=== PATIENT | male | born 1950 | race Caucasian/White ===

== ENCOUNTER 2018-05-07 07:46 | Inpatient (IN) ==
--- NOTE | 2018-04-22 11:37 | Anesthesiology Consultation ---
Date of Service April 22, 2018 Assessment & Plan (1) Encounter for pre-operative examination: Chart Review Chart Review: Acceptable Risk for Surgery and Patient seen in Pre Admission Testing Teaching & Discussion Pre-Anesthesia Teaching/Discussion Notes: Instructed NPO after midnight before surgery,except medications with 15 cc of water. Medication instructions provided according to the PAT guidelines. History Surgery Operation Date: 05/07/18 10:55 Proposed Procedures p Right Anterior Total Hip Replacement - Jin Reinoso DO Height/Weight Height: 5 ft 7 in Weight: 84.4 kg Allergies Allergy/AdvReac Type Severity Reaction Status Date / Time amoxicillin [From Augmentin] Allergy Unknown jaundice Verified 04/02/18 12:03 and elevated blood levels clavulanic acid Allergy Unknown jaundice Verified 04/02/18 12:03 [From Augmentin] and elevated blood levels simvastatin [From Zocor] AdvReac Unknown elevated Verified 04/02/18 12:02 liver enzymes Medications Home Medications Medication Instructions Recorded Confirmed Last Taken allopurinol 100 mg PO BID 04/02/18 04/02/18 Unknown atorvastatin 10 mg PO PM 04/02/18 04/02/18 Unknown cetirizine [Zyrtec] 5 mg PO QPM PRN 04/02/18 04/02/18 Unknown psyllium husk [Metamucil] 0.4 g PO QPM 04/02/18 04/02/18 Unknown tamsulosin 0.4 mg PO QPM 04/02/18 04/02/18 Unknown Past Medical History Medical History Gout High cholesterol History of kidney stones Osteoarthritis Sleep apnea NO DEVICE Past Surgical History Surgical History History of liver biopsy Hx of colonoscopy Hx of cystoscopy STONE BASKET REMOVAL Hx of hernia repair RIGHT INGUINAL Past Anesthesia History No Hx of Anesthesia Complications and No Family Hx of Anesthesia Complications History of PONV No Motion Sickness Screening History of Motion Sickness: No Social History Smoking Status: Former smoker tobacco type: pipe Do You Dip or Chew Tobacco: No Smoking End Date: QUIT 30 YEARS AGO Hx Alcohol Use: Yes Alcohol type: hard liquor alcohol intake frequency: holidays/special occasions only Hx Substance Use: No Exercise / Class Metabolic Activity II 4-5 Yardwork/Stairs/Walk up hill Review of Systems Patient denies chest pain, shortness of breath, dyspnea on exertion, cough, wheezing, palpitations. Physical Exam Vital Signs VITALS BP 136/88 P 84 TEMP 98.1 SP02 96%RA RESP 14 Patient advised to followup with PCP regarding elevated BP. Full neck and c-spine range of motion. Full TMJ range of motion. TMD 3 finger breaths Mallampati Score 3 Dentition: upper front permanent implant Lungs: clear throughout to auscultation Cardiac: regular rate and rhythm, no murmurs noted Spine: normal Carotid arteries: negative bruit Extremities: no edema Testing Electrocardiogram Date: 04/22/18 Findings: + NSR @ (71) Chest X-Ray Date: 04/22/18 Findings: + NAD Laboratory Results 04/22/18 12:01 04/22/18 12:01 Blood Type A Positive 04/22/18 12:01 Antibody Screen NEGATIVE 04/22/18 12:01 PT 10.0 Seconds (9.0-12.0) 04/22/18 12:01 INR 1.0 (0.9-1.1) 04/22/18 12:01 APTT 26.7 Seconds (21.0-31.0) 04/22/18 12:01
--- NOTE | 2018-04-22 11:38 | PAT Medication Instructions ---
Medication Instructions Date of Service April 22, 2018 Home Medications allopurinol 100 mg PO BID atorvastatin 10 mg PO PM cetirizine [Zyrtec] 5 mg PO QPM PRN psyllium husk [Metamucil] 0.4 g PO QPM tamsulosin 0.4 mg PO QPM Take morning of surgery With a small sip of water, OTHERWISE NOTHING TO EAT OR DRINK AFTER MIDNIGHT: allopurinol 100 mg PO BID Take evening before surgery allopurinol 100 mg PO BID atorvastatin 10 mg PO PM cetirizine [Zyrtec] 5 mg PO QPM PRN (if needed) psyllium husk [Metamucil] 0.4 g PO QPM tamsulosin 0.4 mg PO QPM Other Notes If you have any questions please call us at [phone] or [phone] or [phone] or [phone]
--- NOTE | 2018-04-22 12:31 | XRay Report ---
XR chest Pre-admission PA/Lat HISTORY: Preop. COMPARISON: None. FINDINGS: The lungs are clear. Cardiac silhouette is normal in size. No pleural effusions. No pneumot horax. IMPRESSION: No acute process. Electronically signed by: Maurisio Herrera M.D. 04/22/2018 12:29 PM
[2018-04-22 13:20] LABS: Basophils # (auto) 0.08 K/uL (0-0.2); Basophils % (auto) 0.9 %; Eosinophils # (auto) 0.11 K/uL (0-0.5); Eosinophils % (auto) 1.2 %; Hematocrit (blood only) 45.6 % (42-52); Hemoglobin 14.9 g/dL (14.0-18.0); Immature Granulocytes # (auto) 0.02 K/uL (0.00-0.02); Immature Granulocytes % (auto) 0.2 %; Lymphocytes # (auto) 2.34 K/uL (1.2-3.4); Lymphocytes % (auto) 26.2 %; Mean Corpuscular Hgb Conc 32.7 g/dL (32-36); Mean Platelet Volume 10.1 fL (7.4-10.4); Monocytes # (auto) 0.93 K/uL (0.11-0.59); Monocytes % (auto) 10.4 %; Neutrophils # (auto) 5.45 K/uL (1.4-6.5); Neutrophils % (auto) 61.1 %; Platelet Count 300 K/uL (130-400); RDW Coefficient of Variation 14.1 % (11.5-14.5); RDW Standard Deviation 49.9 fL (36.4-46.3); Red Blood Count 4.75 M/uL (4.7-6.1); White Blood Count 8.93 K/uL (4.8-10.8)
[2018-04-22 13:37] LABS: Partial Thromboplastin Time 26.7 Seconds (21.0-31.0)
[2018-04-22 13:44] LABS: BUN Creatinine Ratio 13.1 (10-20); Calcium 8.8 mg/dl (8.5-10.1); Creatinine Clr Calc Pharmacy 65.3 ml/min; Est GFR (African American) 76.7; Est GFR (Non-African American) 66.2; Potassium 4.4 mmol/L (3.5-5.1)
--- NOTE | 2018-05-07 06:39 | History & Physical Report ---
Date of Service May 07, 2018 Assessment & Plan (1) Osteoarthritis of right hip: We will proceed with a right anterior total hip arthroplasty. Postoperatively he will be placed on aspirin for DVT prophylaxis. He will be kept in the hospital for postoperative medical management. He plans to use energy physical therapy upon discharge. Present on Admission?: Yes History of Present Illness Chief Complaint: Primary osteoarthritis of the right hip Primary Care Provider: NO PCP Minesh is a pleasant 67-year-old male who is been chronic increasing right hip and groin pain. X-rays and clinical examination have been diagnostic for primary osteoarthritis of the right hip. After failing extensive conservative treatment, he is elected proceed with a right anterior total hip arthroplasty. Allergies Allergy/AdvReac Type Severity Reaction Status Date / Time amoxicillin [From Augmentin] AdvReac Unknown jaundice Verified 05/02/18 10:35 and elevated blood levels clavulanic acid AdvReac Unknown jaundice Verified 05/02/18 10:35 [From Augmentin] and elevated blood levels simvastatin [From Zocor] AdvReac Unknown elevated Verified 04/02/18 12:02 liver enzymes Home Medications Home Medications Medication Instructions Recorded Confirmed Type allopurinol 100 mg PO BID 04/02/18 04/02/18 History atorvastatin 10 mg PO PM 04/02/18 04/02/18 History cetirizine [Zyrtec] 5 mg PO QPM PRN 04/02/18 04/02/18 History psyllium husk [Metamucil] 0.4 g PO QPM 04/02/18 04/02/18 History tamsulosin 0.4 mg PO QPM 04/02/18 04/02/18 History Past Med/Surg History Medical History Gout High cholesterol History of kidney stones Osteoarthritis Sleep apnea NO DEVICE Surgical History History of liver biopsy Hx of colonoscopy Hx of cystoscopy STONE BASKET REMOVAL Hx of hernia repair RIGHT INGUINAL Social History Current Living Situation: Spouse Other Information That Helps Us Care for You: No Feels Safe at Home: Yes Safety Concerns: Feels Safe At This Time Smoking Status: Former smoker Tobacco Type: pipe Do You Dip or Chew Tobacco: No Smoking End Date: QUIT 30 YEARS AGO Hx Alcohol Use: Yes Alcohol type: hard liquor Alcohol Intake Frequency: holidays/special occasions only Hx Substance Use: No Beliefs That Will Affect Care: None Preferred Language: Danish Communication Ability: Effective Review of Systems All systems reviewed & are unremarkable except as noted in HPI & below Physical Exam 2 Constitutional: WD/WN, vitals as above Eyes: PERRL, conjunctivae normal, anicteric sclerae ENMT: external ear and nose normal, oropharynx normal Neck: trachea midline, no thyromegaly Respiratory: normal respiratory effort Cardiovascular: RRR, no murmur, no edema Gastrointestinal (Abdomen): normal bowel sounds, soft, nontender, no hepatosplenomegaly Musculoskeletal: Physical examination of the right hip reveals decreased range of motion with flexion, internal and external rotation. There is significant groin pain with forced internal rotation of the hip his leg lengths are essentially equal. Psychiatric: A+Ox3, euthymic affect Results & Data Diagnostic Findings Radiographs of the right hip and pelvis demonstrate advanced osteoarthritis with joint space narrowing osteophyte formation and [id number] articulation.
[~2018-05-07 07:46] MED LIST: ACETAMINOPHEN 500 MG TAB PO SCH; BUPIVACAINE 0.5 % 5 MG/1 ML PF 10ML VIAL ONE; CEFAZOLIN 2000MG 2,000 MG/15 ML SYR IV SCH; FAMOTIDINE 20 MG TAB PO SCH; GABAPENTIN 300 MG PO SCH; LR 60ML/HR IV SCH; ROPIVACAINE 0.5% HCL/PF 150 MG, BUPIVACAINE 0.5% MPF 30 ML, EPINEPHrine 30MG/30ML (OR U... INFIL SCH; TRANEXAMIC ACID 1,000 MG **IV Intra-op IV SCH; TRANEXAMIC ACID 1,000 MG **IV Pre-op IV SCH
--- NOTE | 2018-05-07 08:13 | History & Physical Bridge Note ---
Date of Service May 07, 2018 History & Physical Bridge Note I have examined the patient, reviewed the History & Physical and in the interval since the performance of the History & Physical I have noted the following changes of clinical significance: no changes noted
[2018-05-07] MEDS: LR 500ML BOLUS, THEN 15ML/HR IV SCH ×4 (08:38→16:40)
[2018-05-07] MEDS ORDERED: ATROPINE SULFATE 0.1 MG/ML 10ML SYR IV PRN (09:52)
[2018-05-07] MEDS ORDERED: ePHEDrine sulfate 50 MG/ML AMP IV PRN (09:52)
[2018-05-07] MEDS ORDERED: fentaNYL citrate 100 MCG/2 ML VIAL IV PRN (09:52)
[2018-05-07] MEDS ORDERED: ONDANSETRON INJ 2 MG/ML 2 ML VIAL IV PRN ×2 (09:52→15:42)
[2018-05-07] MEDS ORDERED: fentaNYL citrate 100 MCG/2 ML VIAL ONE (10:15)
[2018-05-07] MEDS ORDERED: MIDAZOLAM HCL 1 MG/ML 2ML VIAL ONE ×2 (10:15)
[2018-05-07] MEDS ORDERED: POVIDONE-IODINE OP SOLN 30 ML BTL ONE (10:42)
[2018-05-07] MEDS ORDERED: ORTHO JOINT ANESTHETIC ONE (10:42)
--- NOTE | 2018-05-07 14:31 | Operative Report ---
Post Operative Report Pre & Post Diagnosis Operation Date: 05/07/18 10:40 Pre-Op Diagnosis: Right Hip Degenerative Joint Disease Post-Op Diagnosis: Right Hip Degenerative Joint Disease Procedure Operation Date: 05/07/18 10:40 Actual Procedures p Right Anterior Total Hip Replacement(Right) - Jin Reinoso DO Surgeon Jin Reinoso DO Merchandise Shopper Jin Hernandes PAC Estimated Blood Loss 200 Findings Consistent with Post-Op Diagnosis Specimens Right femoral head Complications none Disposition Disposition: Recovery Room Indications Minesh is a pleasant 67-year-old male who presented my office with complaints of chronic increasing right hip and groin pain. X-rays and clinical examination were diagnostic for primary osteoarthritis of the right hip. After failing extensive conservative treatment, he elected to proceed with a right total hip arthroplasty. Description of Procedure Implants used Biomet Taperloc total hip arthroplasty system with a size 11 high offset Taperloc stem, a 54 mm G7 cup with a 25mm screw, an E1 polyethylene liner, a 40 mm ceramic head with a 0 neck. Patient arrived at the hospital for the above procedure. They were seen in the preoperative holding area and the operative extremity was identified and signed. They were given a spinal anesthetic. They were given a preoperative antibiotic and TXA. They were taken back To the operating room and laid on the table in the supine position. The leg was brought out through a Puristst leg positioner. The hip was then prepped and draped in sterile fashion. A timeout was done and the patient in upper extremities properly identified. An anterior approach was used. Dissection was taken down through the fascia and the tensor muscle belly was retracted laterally and the rectus was retracted medially. The circumflex vessels were identified and ligated. The capsule was then incised and tagged for later repair. The femoral neck was then cut and the femoral head was removed. The acetabulum was exposed. Time was spent doing a complete circumferential labral release. Sequential reaming of the acetabulum up to a size 53 reamer was done. Final reamings were done under fluoroscopy to ensure appropriate version. A Biomet 54 mm G7 cup was then impacted into place. A single 25 mm screw was placed. The E1 polyethylene liner was then snapped into place. Surrounding soft tissues were then injected with 100 cc of an orthopedic pain control cocktail. The proximal femur was then exposed. Sequential broaching up to a size 11 broach was done. Off that broach a size 40 head with a 0 neck was trialed. The hip was reduced and fluoroscopic images showed anatomic alignment of the implants in acceptable length. The broach was removed. The final size 11 high offset Taperloc stem was then impacted into place. A ceramic 40 mm head with a 0 neck was then impacted into place in the hip was reduced. Final fluoroscopic images showed anatomic reduction of the hip. The capsule was then closed with # 1 Vicryl suture. A dilute betadyne lavage was then done for 3 minutes. The joint was then irrigated with normal saline solution. The fascia was closed with #1 PDS suture. Skin was closed with 2-0 Vicryl, luis alberto, and a Indira VAC dressing. The patient was then transferred to a hospital bed and taken to the post anesthesia care unit in stable condition. They tolerated the procedure well. I attest to the content of the Intraoperative Record and any orders documented therein. Any exceptions are noted below.
--- NOTE | 2018-05-07 14:48 | Fluoroscopy Report ---
FL hip RT 1V CLINICAL HISTORY: 67 years-old Male presenting with RT ANTERIOR HIP. TECHNIQUE: 2 fluoroscopic image(s) recorded as part of an intraoperative procedure. COMPARISON: 02/25/2018. FINDINGS/IMPRESSION: Total right hip arthroplasty. No gross periprosthetic fracture. No malalignment. Partially visualized vasectomy clips. Please see surgical report for further details. Fluoroscopy dosage (mGy): 3.32. Fluoroscopy time: 24.8 seconds. Number or time of fluoroscopic spot images: 0. Electronically signed by: Junior Parish M.D. 05/07/2018 2:47 PM
--- NOTE | 2018-05-07 15:38 | XRay Report ---
XR hip 1V RT w pelvis CLINICAL HISTORY: Postop study OSTEOARTHRITIS COMPARISON: Outside conventional radiographic study dated 02/25/2018 DISCUSSION: There are postsurgical changes of a total right hip arthroplasty. There are no acute frac tures. There is no dislocation. There are overlying skin luis alberto. There is air within the soft tissue s consistent with recent surgery. IMPRESSION: Postsurgical changes of a total right hip arthroplasty. No evidence of dislocation. Electronically signed by: Tirso Loera M.D. 05/07/2018 3:37 PM
[2018-05-07] MEDS ORDERED: MAGNESIUM HYDROXIDE SUSP 30 ML UDC PO PRN (15:42)
[2018-05-07] MEDS ORDERED: HYDROmorphone INJ 0.5 MG/0.5 ML SYR IV PRN (15:42)
[2018-05-07] MEDS ORDERED: BISACODYL 10 MG SUPP PR PRN (15:42)
[2018-05-07] MEDS ORDERED: METOCLOPRAMIDE HCL INJ 5 MG/ML 2 ML VIAL IV PRN (15:42)
[2018-05-07] MEDS ORDERED: SODIUM CHLORIDE 0.9% 1000ML 1,000 ML IV SCH (15:42)
[2018-05-07] MEDS ORDERED: CETIRIZINE HCL 10 MG TABLET PO PRN (15:42)
[2018-05-07] MEDS ORDERED: OXYCODONE HCL IR 5 MG TAB (IMMEDIATE RELEASE) PO PRN (15:42)
[2018-05-07] MEDS ORDERED: NALOXONE HCL 0.4 MG/1 ML VIAL/CARP IV PRN (15:42)
--- NOTE | 2018-05-07 16:17 | Anesthesiology Progress Note ---
Date of Service May 07, 2018 Anesthesia Post Procedure Vital Signs Vital Signs: Temp Pulse Pulse Resp BP BP Pulse Ox 05/07/18 16:08 97.2 F L 61 20 104/72 99 05/07/18 15:15 97.5 F L 75 18 103/62 100 05/07/18 15:05 69 18 105/57 L 100 05/07/18 14:55 80 16 105/66 95 05/07/18 14:48 97.2 F L 75 16 108/68 95 05/07/18 08:53 97.9 F 70 20 141/90 H 96 Notes Mental Status: alert / awake / arousable and participated in evaluation Patient Amnestic to Procedure: Yes Nausea / Vomiting: adequately controlled Pain: adequately controlled Airway Patency, RR, SpO2: stable & adequate BP & HR: stable & adequate Hydration State: stable & adequate Neuraxial Anesthesia: was administered and sensory block is resolving Anesthetic Complications: no major complications apparent and Pt Satisfied with anesthetic care
[2018-05-07] MEDS: KETOROLAC TROMETHAMINE 15 MG/ML VIAL IV SCH (18:34)
[2018-05-07] MEDS ORDERED: SENNA 8.6 MG TAB PO SCH (21:00)
[2018-05-07] MEDS ORDERED: PSYLLIUM 58.6% POWDER PACKET PO SCH (21:00)
[2018-05-07] MEDS ORDERED: TAMSULOSIN HCL 0.4 MG CAP PO SCH (21:00)
[2018-05-07] MEDS ORDERED: ATORVASTATIN 10 MG TAB PO SCH (21:00)
[2018-05-07] MEDS: ALLOPURINOL 100 MG TAB PO SCH (21:43)
[2018-05-07] MEDS: DOCUSATE SODIUM 100 MG CAP PO SCH (21:43)
[2018-05-07] MEDS: ASPIRIN 81 MG ECTAB PO SCH (21:44)
[2018-05-07] MEDS: ACETAMINOPHEN 500 MG TAB PO SCH (21:45)
[2018-05-07] MEDS: CEFAZOLIN 2000MG 2,000 MG/15 ML SYR IV SCH (21:51)
[2018-05-08] MEDS: KETOROLAC TROMETHAMINE 15 MG/ML VIAL IV SCH ×3 (00:18→11:16)
[2018-05-08] MEDS: CEFAZOLIN 2000MG 2,000 MG/15 ML SYR IV SCH (05:25)
[2018-05-08] MEDS: ACETAMINOPHEN 500 MG TAB PO SCH (05:26)
--- NOTE | 2018-05-08 06:52 | Orthopedic Progress Note ---
Date of Service May 08, 2018 Assessment & Plan (1) Osteoarthritis of right hip: Overall he is doing very well. Is not having much pain in the hip. He is already been up and ambulating. He is on oxycodone for pain control and aspirin for DVT prophylaxis. He will be seen by physical therapy today. If he is feeling well early this afternoon he can be discharged home. He will follow- up with orthopedics in 2 weeks. Present on Admission?: Yes Subjective Minesh was seen and examined at bedside this morning. Overall is doing very well. He is been up and using the bathroom without much difficulty. He does not have much pain in the hip. He is happy with his progress. He has no complaints. Physical Exam 2 Vital Signs (Past 24 Hours): Last Vital Signs Temp 36.3 C L 05/08/18 03:16 Pulse 68 05/08/18 03:16 Resp 14 05/08/18 03:16 BP 128/79 05/08/18 03:16 Pulse Ox 94 05/08/18 03:16 Musculoskeletal: On physical examination of the right hip, the Indira VAC dressing is to suction. His leg lengths are equal. He has active dorsiflexion and plantarflexion of his right ankle. Sensation is intact throughout. Results & Data Laboratory Results H & H 04/22/18 Range/Units 12:01 Hgb 14.9 (14.0-18.0) g/dL Hct 45.6 (42-52) % Coagulation 04/22/18 Range/Units 12:01 INR 1.0 (0.9-1.1) Diagnostic Findings Postoperative x-rays of the right hip show the prosthesis to be in anatomic alignment without any evidence of fracture, dislocation, or loosening.
--- NOTE | 2018-05-08 06:53 | Discharge Summary ---
Date of Service May 08, 2018 Admission HPI Per Admitting Provider Minesh is a pleasant 67-year-old male who is been chronic increasing right hip and groin pain. X-rays and clinical examination have been diagnostic for primary osteoarthritis of the right hip. After failing extensive conservative treatment, he is elected proceed with a right anterior total hip arthroplasty. Specialty Data Orthopedic H & H 04/22/18 Range/Units 12:01 Hgb 14.9 (14.0-18.0) g/dL Hct 45.6 (42-52) % Coagulation 04/22/18 Range/Units 12:01 INR 1.0 (0.9-1.1) Discharge Data Consultations 05/08/18 08:00 Consult Case Management - Discharge Planning Routine Procedures Performed Operation Date: 05/07/18 10:40 Actual Procedures p Right Anterior Total Hip Replacement(Right) - Jin Reinoso DO [place] [facility] Course (1) Osteoarthritis of right hip: On May 07, 2018 Minesh arrived at [facility] and underwent a right anterior total hip arthroplasty without complication. He had a spinal anesthetic. Postoperatively he was started on aspirin for DVT prophylaxis and discharged to general orthopedic floors. His hospital course was uneventful. On postop day #1 his H&H was stable and his pain was well controlled. He was able to ambulate well with physical therapy. He was discharged to home with physical therapy. He will follow-up with orthopedics in 2 weeks. Discharge Instructions Home Medications Medication Instructions Recorded Confirmed allopurinol 100 mg PO BID 04/02/18 05/07/18 atorvastatin 10 mg PO PM 04/02/18 05/07/18 cetirizine [Zyrtec] 5 mg PO QPM PRN 04/02/18 05/07/18 psyllium husk [Metamucil] 0.4 g PO QPM 04/02/18 05/07/18 tamsulosin 0.4 mg PO QPM 04/02/18 05/07/18 Previous Rx's Medication Instructions Recorded aspirin [Ecotrin Low Strength] 81 mg PO BID #84 tab 05/08/18 oxycodone 5 - 10 mg PO Q4H PRN #40 tab 05/08/18
[2018-05-08] MEDS: ALLOPURINOL 100 MG TAB PO SCH (06:55)
[2018-05-08] MEDS: DOCUSATE SODIUM 100 MG CAP PO SCH (06:55)
[2018-05-08] MEDS: ASPIRIN 81 MG ECTAB PO SCH (06:55)
[2018-05-08 07:01] LABS: Basophils # (auto) 0.01 K/uL (0-0.2); Basophils % (auto) 0.1 %; Eosinophils # (auto) 0.01 K/uL (0-0.5); Eosinophils % (auto) 0.1 %; Hematocrit (blood only) 41.6 % (42-52); Hemoglobin 13.7 g/dL (14.0-18.0); Immature Granulocytes # (auto) 0.05 K/uL (0.00-0.02); Immature Granulocytes % (auto) 0.4 %; Lymphocytes # (auto) 1.54 K/uL (1.2-3.4); Mean Corpuscular Hgb Conc 32.9 g/dL (32-36); Mean Corpuscular Volume 95.4 fL (80-100); Mean Platelet Volume 9.8 fL (7.4-10.4); Monocytes # (auto) 1.23 K/uL (0.11-0.59); Monocytes % (auto) 8.8 %; Neutrophils % (auto) 79.6 %; Platelet Count 225 K/uL (130-400); RDW Standard Deviation 48.4 fL (36.4-46.3); Red Blood Count 4.36 M/uL (4.7-6.1); White Blood Count 14.04 K/uL (4.8-10.8)
[2018-05-08 07:30] LABS: BUN Creatinine Ratio 15.2 (10-20); Calcium 8.4 mg/dl (8.5-10.1); Est GFR (African American) 75.9; Est GFR (Non-African American) 65.5; Potassium 4.2 mmol/L (3.5-5.1)
[2018-05-08] MEDS ORDERED: MULTIVITAMIN TAB PO SCH (09:00)
== END 2018-05-08 13:16 | disposition home or self-care (01) | DRG 470 ==
LOC: ASU 07:46 → 3E 14:35